=== PATIENT | male | born 1970 | race Caucasian/White ===

== ENCOUNTER 2021-11-25 16:46 | Inpatient (IN) | payer BC ==
[2021-11-25] MEDS ORDERED: CLOPIDOGREL 75 MG TAB ONE (17:00)
[2021-11-25] MEDS ORDERED: SODIUM CHLORIDE 0.9% 1,000 ML IV STA (17:15)
[2021-11-25] MEDS ORDERED: ASPIRIN 81 MG PO STA (17:15)
[2021-11-25] MEDS ORDERED: HEPARIN SODIUM 1,000 UN/ML (10ML VL) IV ONE ×2 (17:15→18:06)
[2021-11-25] MEDS ORDERED: NALOXONE 0.4 MG/ML 1 ML VIAL IV PRN (17:20)
--- NOTE | 2021-11-25 17:20 | ED ---
General Adult HPI - General Chief complaint: Chest Pain Stated complaint: chest pain Time Seen by Provider: 11/25/21 17:05 Source: patient, RN notes reviewed, old records reviewed Mode of arrival: ambulatory Limitations: no limitations - History of Present Illness Initial comments: Patient is a 50-year-old male with past medical history remarkable for chronic tobacco use who presents emergency Department multiple hours after the start of left-sided chest pain. Chest pain started between 2 PM and 3 PM. I evaluated the patient and he was placed in a room. She's describes the pain as an achy, sharp pain radiating from substernal to left side of his chest. States it is still somewhat there but is much improved from earlier. Does endorse some li ghtheadedness at this time. Endorses some shortness of breath earlier which is since improved as well. Denies any abdominal pain, nausea, vomiting. Denies any other acute complaints at this time. No medical history. Denies any medications or ALLERGIES. Not on blood thinners. Drove himself here. - Related Data Home Medications Medication Instructions Recorded Confirmed No Known Home Medications 11/25/21 11/25/21 Allergies Allergy/AdvReac Type Severity Reaction Status Date / Time No Known Allergies Allergy Verified 11/25/21 17:29 Review of Systems ROS Statement: Those systems with pertinent positive or pertinent negative responses have been documented in the HPI. Review of Systems: CONST: Denies fever EYES: Denies blurry vision ENT: Denies nasal congestion C/V: Endorses chest pain RESP: Denies shortness of breath GI: Denies abdominal pain : Denies dysuria SKIN: Denies rash. MSK: Denies joint pain. NEURO: Denies headache ROS Other: All systems not noted in ROS Statement are negative. Past Medical History Past Medical History: No Reported History History of Any Multi-Drug Resistant Organisms: None Reported Past Surgical History: Appendectomy, Orthopedic Surgery Past Psychological History: No Psychological Hx Reported Smoking Status: Current every day smoker Past Alcohol Use History: None Reported Past Drug Use History: None Reported General Exam - General Exam Comments Initial Comments: General: Appears in mild distress. HEAD: Normal with no signs of head trauma. EYES: PERRLA, EOMI, conjunctiva normal, no discharge. ENT: Hearing grossly intact, normal oropharynx. RESPIRATORY: Clear breath sounds bilaterally. No wheezes, rales, or rhonchi. C/V: Regular rate and rhythm. S1 and S2 auscultated, no edema, peripheral pulses 2+ and intact throughout ABD: Abd is soft, nontender, nondistended EXT: Normal range of motion, no obvious deformity SKIN: No rashes or lesions observed on exposed skin. NEURO: Alert and oriented 4. No focal deficits. Limitations: no limitations Course Vital Signs 11/25/21 16:59 Temperature 97.9 F Pulse Rate 102 H Respiratory 20 Rate Blood Pressure 98/64 O2 Sat by Pulse 100 Oximetry Medical Decision Making - Medical Decision Making Based on the patient's presentation and physical exam, there is concern for ACS. EKG was obtained at bedside, and showed acute STEMI, inferior wall. STEMI pager was activated. Cardiac labs were ordered. Patiently, 1 L fluid bolus as well as aspirin as well as a 4000 unit heparin bolus. I spoke with cardiology institutional cook, Dr. Burger who agreed the patient requires laboratory secretary. He evaluated the patient bedside. Dr. Burger was consulted. He requested the patient be administered Lipitor as well. Patient was reevaluated multiple times while he remained in the emergency department. EKG showed inferior wall STEMI. Laboratory studies were remarkable for mild leukocytosis of 11.4. Troponin is elevated to 0.082. Covid is negative. Remainder of the labs are unremarkable. I spoke with the admitting team under Dr. Cheney, city call. Patient was therefore admitted in serious condition. Disposition was to the [facility]. - Lab Data Result diagrams: 11/25/21 17:19 11/25/21 17:19 Lab Results 11/25/21 11/25/21 11/25/21 Range/Units 17:19 17:19 17:19 WBC 11.4 H (3.8-10.6) k/uL RBC 5.35 (4.30-5.90) m/uL Hgb 16.7 (13.0-17.5) gm/dL Hct 52.1 (39.0-53.0) % MCV 97.4 (80.0-100.0) fL MCH 31.2 (25.0-35.0) pg MCHC 32.0 (31.0-37.0) g/dL RDW 13.4 (11.5-15.5) % Plt Count 261 (150-450) k/uL MPV 7.9 Neutrophils % 75 % Lymphocytes % 19 % Monocytes % 4 % Eosinophils % 1 % Basophils % 0 % Neutrophils # 8.5 H (1.3-7.7) k/uL Lymphocytes # 2.2 (1.0-4.8) k/uL Monocytes # 0.4 (0-1.0) k/uL Eosinophils # 0.1 (0-0.7) k/uL Basophils # 0.0 (0-0.2) k/uL PT 10.5 (9.0-12.0) sec INR 1.0 (<1.2) APTT 25.1 (22.0-30.0) sec Sodium 135 L (137-145) mmol/L Potassium 3.8 (3.5-5.1) mmol/L Chloride 102 (98-107) mmol/L Carbon Dioxide 27 (22-30) mmol/L Anion Gap 6 mmol/L BUN 8 L (9-20) mg/dL Creatinine 0.80 (0.66-1.25) mg/dL Est GFR (CKD-EPI)AfAm >90 (>60 ml/min/1.73 sqM) Est GFR (CKD-EPI)NonAf >90 (>60 ml/min/1.73 sqM) Glucose 119 H (74-99) mg/dL Calcium 9.2 (8.4-10.2) mg/dL Total Bilirubin 0.7 (0.2-1.3) mg/dL AST 20 (17-59) U/L ALT 14 (4-49) U/L Alkaline Phosphatase 86 (38-126) U/L Troponin I (0.000-0.034) ng/mL Total Protein 6.7 (6.3-8.2) g/dL Albumin 4.1 (3.5-5.0) g/dL Coronavirus (PCR) (Not Detectd) 11/25/21 11/25/21 Range/Units 17:19 17:27 WBC (3.8-10.6) k/uL RBC (4.30-5.90) m/uL Hgb (13.0-17.5) gm/dL Hct (39.0-53.0) % MCV (80.0-100.0) fL MCH (25.0-35.0) pg MCHC (31.0-37.0) g/dL RDW (11.5-15.5) % Plt Count (150-450) k/uL MPV Neutrophils % % Lymphocytes % % Monocytes % % Eosinophils % % Basophils % % Neutrophils # (1.3-7.7) k/uL Lymphocytes # (1.0-4.8) k/uL Monocytes # (0-1.0) k/uL Eosinophils # (0-0.7) k/uL Basophils # (0-0.2) k/uL PT (9.0-12.0) sec INR (<1.2) APTT (22.0-30.0) sec Sodium (137-145) mmol/L Potassium (3.5-5.1) mmol/L Chloride (98-107) mmol/L Carbon Dioxide (22-30) mmol/L Anion Gap mmol/L BUN (9-20) mg/dL Creatinine (0.66-1.25) mg/dL Est GFR (CKD-EPI)AfAm (>60 ml/min/1.73 sqM) Est GFR (CKD-EPI)NonAf (>60 ml/min/1.73 sqM) Glucose (74-99) mg/dL Calcium (8.4-10.2) mg/dL Total Bilirubin (0.2-1.3) mg/dL AST (17-59) U/L ALT (4-49) U/L Alkaline Phosphatase (38-126) U/L Troponin I 0.082 H* (0.000-0.034) ng/mL Total Protein (6.3-8.2) g/dL Albumin (3.5-5.0) g/dL Coronavirus (PCR) Not Detected (Not Detectd) - EKG Data -: EKG Interpreted by Me EKG Comments: 12-lead Electrocardiogram Interpretation Note EKG was reviewed and interpreted by myself. 12-lead ECG performed at 1710 is interpreted by me as revealing normal sinus rhythm at a rate of 78 beats per minute. [place] is normal. [place] interval is 1 and 36 seconds, QRS duration is 80 ms, QTc is 426 no seconds.. There is concern for inferior wall ST segment elevation, with ST segment elevations in lead II, III, aVF as well as depressions in aVL and V2.. R wave progression across the precordium was delayed.. By my interpretation, this EKG is concerning for acute ST segment elevation inferior wall myocardial infarction.. Disposition Clinical Impression: ST elevation myocardial infarction (STEMI), Chest pain, Elevated troponin Disposition: ADMITTED IP TO THIS HOSP Condition: Serious Referrals: None,Stated [Primary Care Provider] - 1-2 days
[2021-11-25] MEDS ORDERED: ATORVASTATIN 80 MG TAB PO STA (17:27)
[2021-11-25 17:33] LABS: Basophils % (A) 0 %; Eosinophils # (A) 0.1 k/uL (0-0.7); Eosinophils % (A) 1 %; HCT 52.1 % (39.0-53.0); HGB 16.7 gm/dL (13.0-17.5); Lymphocytes # (A) 2.2 k/uL (1.0-4.8); Lymphocytes % (A) 19 %; MCH 31.2 pg (25.0-35.0); MCV 97.4 fL (80.0-100.0); Mean Platelet Volume 7.9; Monocytes # (A) 0.4 k/uL (0-1.0); Monocytes % (A) 4 %; Neutrophils # (A) 8.5 k/uL (1.3-7.7); Neutrophils % (A) 75 %; Platelet Count 261 k/uL (150-450); RBC 5.35 m/uL (4.30-5.90); RDW 13.4 % (11.5-15.5); WBC 11.4 k/uL (3.8-10.6)
[2021-11-25 17:37] LABS: ALT 14 U/L (4-49); AST 20 U/L (17-59); African American GFR (CKD) >90 (>60 ml/min/1.73 sqM); Albumin 4.1 g/dL (3.5-5.0); Alkaline Phosphatase 86 U/L (38-126); Anion Gap 6 mmol/L; Blood Urea Nitrogen 8 mg/dL (9-20); Calcium 9.2 mg/dL (8.4-10.2); Carbon Dioxide 27 mmol/L (22-30); Chloride 102 mmol/L (98-107); Glucose 119 mg/dL (74-99); Non-African American GFR(CKD) >90 (>60 ml/min/1.73 sqM); Potassium 3.8 mmol/L (3.5-5.1); Sodium 135 mmol/L (137-145); Total Bilirubin 0.7 mg/dL (0.2-1.3); Total Protein 6.7 g/dL (6.3-8.2)
--- NOTE | 2021-11-25 17:39 | P.CRDCN ---
History of Present Illness History of present illness: HISTORY OF PRESENTING ILLNESS This is a pleasant 50-year-old with past medical history significant for tobacco abuse who presents with chest pain that started approximately 2:30 today. He s tates it feels like a pressure achy feeling and would not go away and therefore drove himself to the emergency department he was found to have inferior STEMI. He denies any real lightheadedness or shortness breath. He denies any similar episodes in the past. He does smoke however no alcohol nor illicit drugs. EKG shows sinus rhythm with ST elevation inferiorly with reciprocal changes as well as ST depressions V1 through V2. REVIEW OF SYSTEMS At the time of my exam: CONSTITUTIONAL: Denies fever or chills. CARDIOVASCULAR: +chest pain, no shortness of breath, orthopnea, PND or palpitations. RESPIRATORY: Denies cough. GASTROINTESTINAL: Denies abdominal pain, diarrhea, constipation, nausea or vomiting. MUSCULOSKELETAL: Denies myalgias. NEUROLOGIC: Denies numbness, tingling or weakness. ENDOCRINE: Denies fatigue, weight change, polydipsia or polyurina. GENITOURINARY: Denies burning, hematuria or urgency with micturation. HEMATOLOGIC: Denies history of anemia or bleeding. PHYSICAL EXAMINATION Vital signs reviewed. CONSTITUTIONAL: +mild distress. HEENT: Head is normocephalic. Pupils are equal, round. Sclerae anicteric. Mucous membranes of the mouth are moist. No JVD. No carotid bruit. CHEST EXAMINATION: Lungs are clear to auscultation. No chest wall tenderness is noted on palpation or with deep breathing. HEART EXAMINATION: Regular rate and rhythm. S1, S2 heard. No murmurs, gallops or rub. ABDOMEN: Soft, nontender. Positive bowel sounds. EXTREMITIES: 2+ peripheral pulses, no lower extremity edema and no calf tenderness. NEUROLOGIC EXAMINATION: Patient is awake, alert and oriented x3. ASSESSMENT 1. Inferior STEMI 2. Tobacco abuse PLAN Discussed recommendations for heart catheterization with likely PCI and patient is agreeable. Aspirin, heparin, high intensity statin. Tobacco cessation. Check 2-D echo. Past Medical History Past Medical History: No Reported History History of Any Multi-Drug Resistant Organisms: None Reported Past Surgical History: Appendectomy, Orthopedic Surgery Past Psychological History: No Psychological Hx Reported Smoking Status: Current every day smoker Past Alcohol Use History: None Reported Past Drug Use History: None Reported Medications and Allergies Home Medications Medication Instructions Recorded Confirmed Type No Known Home Medications 11/25/21 11/25/21 History Allergies Allergy/AdvReac Type Severity Reaction Status Date / Time No Known Allergies Allergy Verified 11/25/21 17:29 Physical Exam Vitals: Vital Signs Temp Pulse Resp BP Pulse Ox 11/25/21 16:59 97.9 F 102 H 20 98/64 100 Intake and Output 11/25/21 11/25/21 11/25/21 06:59 14:59 22:59 Other: Weight 79.379 kg Results 11/25/21 17:19 CBC 11/25/21 Range/Units 17:19 WBC 11.4 H (3.8-10.6) k/uL RBC 5.35 (4.30-5.90) m/uL Hgb 16.7 (13.0-17.5) gm/dL Hct 52.1 (39.0-53.0) % Plt Count 261 (150-450) k/uL Current Medications Generic Name Dose Route Start Last Admin Trade Name Josephq PRN Reason Stop Dose Admin Sodium Chloride 1,000 mls @ 999 mls/hr 11/25/21 17:15 11/25/21 17:22 Saline 0.9% IV 11/25/21 18:15 999 mls/hr .Q1H1M STA Administration Intake and Output 11/25/21 11/25/21 11/25/21 06:59 14:59 22:59 Other: Weight 79.379 kg Patient Weight 11/26/21 06:59 Weight 79.379 kg 11/25/21 17:19
[2021-11-25] MEDS ORDERED: IV FLUID CONTINUATION 1,000 ML IV ONE ×2 (17:40)
[2021-11-25] MEDS ORDERED: HEPARIN SODIUM 1,000 UN/ML (10ML VL) ONE (17:41)
[2021-11-25] MEDS ORDERED: fentaNYL (PF) 50 MCG/ML 2 ML AMP ONE (17:41)
[2021-11-25 17:45] LABS: Partial Thromboplastin Time 25.1 sec (22.0-30.0); Prothrombin Time 10.5 sec (9.0-12.0)
--- NOTE | 2021-11-25 17:46 | P.HPIM ---
History of Present Illness H&P Date: 11/25/21 Chief Complaint: chest pain Patient is a 50-year-old male with past medical history of tobacco abuse who presents to the ED with pressure-like chest pain radiating across his chest. Patient states that it started at 2:30 PM while patient was doing his work on the computer. Patient stated that the chest pain was associated with lightheadedness. Patient was able to drive himself to the hospital. In the ED patient was found to have ST elevation in leads II, III and aVF with reciprocal changes in leads V1 and V2. STEMI alert was activated. Patient seen by [facility] and plan is to take him to the [facility]. Patient was given aspirin. Patient states that currently his chest pain is 0 out of 10. Review of Systems 10 ROS reviewed and are negative except as noted in HPI Past Medical History Past Medical History: No Reported History Additional Past Medical History / Comment(s): tobacco abuse History of Any Multi-Drug Resistant Organisms: None Reported Past Surgical History: Appendectomy, Orthopedic Surgery Past Psychological History: No Psychological Hx Reported Smoking Status: Current every day smoker Past Alcohol Use History: None Reported Past Drug Use History: None Reported Medications and Allergies Home Medications Medication Instructions Recorded Confirmed Type No Known Home Medications 11/25/21 11/25/21 History Allergies Allergy/AdvReac Type Severity Reaction Status Date / Time No Known Allergies Allergy Verified 11/25/21 17:29 Physical Exam Osteopathic Statement: *. No significant issues noted on an osteopathic struct ural exam other than those noted in the History and Physical/Consult. Vitals: Vital Signs Temp Pulse Resp BP Pulse Ox 11/25/21 16:59 97.9 F 102 H 20 98/64 100 Intake and Output 11/25/21 11/25/21 11/25/21 06:59 14:59 22:59 Other: Weight 79.379 kg General: [Alert and oriented, well nourished, no acute distress]. Eye: [PERRL, EOMI, normal conjunctiva]. HENT: [Normocephalic, clear tympanic membranes, normal hearing, moist oral mucosa, no scleral icterus, no sinus tenderness]. Neck: [Supple, non-tender, no carotid bruits, no JVD, no lymphadenopathy]. Lungs: [Clear to auscultation and percussion, non-labored respiration]. Heart: [Normal rate, regular rhythm, no murmur, gallop or edema]. Abdomen: [Soft, non-tender, non-distended, normal bowel sounds, no masses]. Musculoskeletal: [Normal range of motion and strength, no tenderness or swelling]. Skin: [Skin is warm, dry and pink, no rashes or lesions]. Neurologic: [Awake, alert, and oriented X3, CN II-XII intact]. Psychiatric: [Cooperative, appropriate mood and affect]. Results CBC & Chem 7: 11/25/21 17:19 11/25/21 17:19 Labs: Abnormal Lab Results - Last 24 Hours (Table) 11/25/21 11/25/21 Range/Units 17:19 17:19 WBC 11.4 H (3.8-10.6) k/uL Neutrophils # 8.5 H (1.3-7.7) k/uL Sodium 135 L (137-145) mmol/L BUN 8 L (9-20) mg/dL Glucose 119 H (74-99) mg/dL Assessment and Plan Assessment: #Inferior STEMI -STEMI has been activated. Patient will be taken to [facility] for emergent heart catheterization. -Aspirin heparin and high intensity started -Check lipid panel -Check 2-D echo -Troponin pending #Tobacco abuse -Patient will need counseling on smoking cessation prior to discharge CODE STATUS:full code DPOA: Patient would like his to make decisions for him if he lacks capacity DVT prophylaxis: Heparin drip Discussed with: Patient, ER, rn Anticipated length of stay > than [address]: home A total of 75 minutes was spent on the care of this complex patient more than 50% of the time was spent in counseling and care coordination.
[2021-11-25] MEDS ORDERED: LIDOCAINE 1% INJ 10MG/ML (20 ML MDV) SQ ONE (17:48)
[2021-11-25] MEDS ORDERED: MIDAZOLAM 2 MG/2 ML VIAL IV ONE (17:48)
[2021-11-25] MEDS ORDERED: fentaNYL (PF) 50 MCG/ML 2 ML AMP IV ONE (17:48)
--- NOTE | 2021-11-25 17:48 | XR ---
EXAMINATION TYPE: XR chest 1V portable DATE OF EXAM: 11/25/2021 5:29 PM COMPARISON:Multiple radiographs, with the most recent on 01/20/2014 TECHNIQUE: Frontal view of the chest. CLINICAL INDICATION:Male, 50 years old with history of chest pain; FINDINGS: Lungs/Pleura: There is no evidence of pleural effusion, focal consolidation, or pneumothorax. Pulmonary vascularity: Unremarkable. Heart/mediastinum: Cardiomediastinal silhouette is unremarkable. Musculoskeletal:No acute osseous pathology. IMPRESSION: No acute cardiopulmonary disease/process.
[2021-11-25] MEDS ORDERED: VERAPAMIL SYRINGE (5 MG/10 ML) INTRAARTER ONE (17:50)
[2021-11-25] MEDS ORDERED: PRASUGREL 10 MG TAB ONE (17:57)
[2021-11-25] MEDS ORDERED: PRASUGREL 10 MG TAB PO ONE (18:04)
[2021-11-25] MEDS ORDERED: IOPAMIDOL-370 125ML BTL INJ ONE (18:24)
[2021-11-25 18:51] LABS: Glucose,Whole Blood 105 mg/dL (75-99)
[2021-11-25] MEDS ORDERED: ZOLPIDEM 5 MG TAB PO PRN (19:16)
[2021-11-25] MEDS ORDERED: NITROGLYCERIN SL TABS 0.4 MG TAB SUBLINGUAL PRN (19:16)
[2021-11-25] MEDS ORDERED: MAG HYDROX/AL HYDROX/SIMETH 30 ML CUP PO PRN (19:16)
[2021-11-25] MEDS ORDERED: RX INFO: IV CONTRAST WAS GIVEN 1 EACH MISC MISCELLANE PRN (19:16)
[2021-11-25] MEDS ORDERED: ATROPINE SULFATE 0.1 MG/ML 10ML SYRINGE IV PRN (19:16)
[2021-11-25] MEDS: SODIUM CHLORIDE 0.9% 1,000 ML in EMPTY BAG 1 BAG IV SCH (20:48)
--- NOTE | 2021-11-25 22:02 | P.PRCINT ---
Percutaneous Coronary Int. - Percutaneous Coronary Intervention Percutaneous Coronary Intervention: PROCEDURES PERFORMED: Left heart catheterization, bilateral coronary angiography, aspiration thrombectomy RCA with Penumbra catheter, PCI RCA with 4.0 x 18mm Xience ADALBERTO, post dilated with a 4.5 NC balloon INDICATION: Inferior STEMI HISTORY: Patient is a pleasant 50 year old male with history of tobacco abuse who presented with chest pain over the last 2.5 hrs and was found to have inferior STEMI. He was given aspirin and heparin in ER with improvement in ST elevations by the time patient presented to [facility]. CONSENT:I have discussed the risks, benefits and alternative therapies for the above-mentioned procedure and for both sedation/analgesia as well as necessary blood product administration, if indicated, as they pertain to this patient. The patient has indicated understanding and acceptance of the risks and procedures discussed. PROCEDURE: After the risks, benefits and alternatives of the above mentioned procedure explained in detail with the patient, informed consent was obtained. Patient was taken to the catheterization lab and prepped and draped in usual fashion. 1% lidocaine was used to anesthetize the right radial artery. A 6- [place] sheath was placed in the right radial artery using modified Seldinger technique. Right coronary angiography was performed with a 6Fr AL 0.75 guide. Heparin was given for an ACT > 250. A 0.014 BMW wire was advanced into the distal RCA. Aspiration thrombectomy was performed with a Penumbra catheter given high thrombus burden. Next pre dilation was performed with a 3.0 x 12mm balloon. Next a 4.0 x 18mm Xience ADALBERTO was advanced and deployed in the mid RCA. The middle of the stent was post dilated with a 4.5NC balloon. The wire was pulled and final angiograms were performed. Pre intervention there was KEMI 2 flow and 99% stenosis and post intervention there was 0% stenosis and KEMI 3 flow. Left coronary angiography was performed with a 5-[place] JL 3.5 catheter. The JL 3.5 catheter was advanced into the LV and pressure measurements were obtained. The right radial sheath was removed and a TR band was placed with hemostasis achieved. The patient tolerated the procedure well. Patient was transported back to the post catheterization holding area in stable condition. Conscious Sedation: Patient was monitored under the direct supervision of vision of myself for conscious sedation using Versed and fentanyl for a total duration of 40 minutes HEMODYNAMICS: AO: 110/69 LV: 113/3, LVEDP 19mmHg SELECTIVE CORONARY ARTERIOGRAPHY: LEFT MAIN: The left main is a large caliber vessel which bifurcates into the LAD and circumflex. There is no stenosis. LEFT ANTERIOR DESCENDING CORONARY ARTERY: LAD is a large caliber vessel which wraps around to the apex. There is no stenosis of the LAD. There is a 30-40% proximal diagonal 1 branch stenosis. LEFT CIRCUMFLEX CORONARY ARTERY: Left circumflex is a moderate caliber vessel which has no significant stenosis. RIGHT CORONARY ARTERY: The right coronary artery is a large caliber vessel which gives off the PDA and PLV and is the dominant vessel. There is a hazy appearing mid RCA 99% stenosis and otherwise no significant stenosis. FINAL IMPRESSION: 1. CAD as described including 99% RCA stenosis and proximal diagonal 1 30-40% stenosis. 2. S/p successful PCI of mid RCA with 4.0 x 18mm Xience ADALBERTO post dilated with a 4.5NC balloon 3. Elevated left sided filling pressures PLAN: 1. Aggressive risk factor modification per most recent ACC/AHA guidelines. 2. Continue dual antiplatelets for 12 months. 3. Tobacco cessation.
[2021-11-26] MEDS: METOPROLOL SUCCINATE (ER) 25 MG TAB.ER.24H PO SCH (06:27)
[2021-11-26 07:36] LABS: HGB 14.8 gm/dL (13.0-17.5); MCH 32.4 pg (25.0-35.0); MCHC 32.9 g/dL (31.0-37.0); MCV 98.3 fL (80.0-100.0); Mean Platelet Volume 7.9; Platelet Count 228 k/uL (150-450); RBC 4.58 m/uL (4.30-5.90); RDW 13.1 % (11.5-15.5); WBC 7.5 k/uL (3.8-10.6)
[2021-11-26 07:40] LABS: African American GFR (CKD) >90 (>60 ml/min/1.73 sqM); Anion Gap 4 mmol/L; Blood Urea Nitrogen 8 mg/dL (9-20); Calcium 8.6 mg/dL (8.4-10.2); Carbon Dioxide 22 mmol/L (22-30); Chloride 112 mmol/L (98-107); Glucose 99 mg/dL (74-99); Non-African American GFR(CKD) >90 (>60 ml/min/1.73 sqM); Potassium 4.2 mmol/L (3.5-5.1); Sodium 138 mmol/L (137-145)
[2021-11-26] MEDS: ASPIRIN 81 MG PO SCH (08:45)
[2021-11-26] MEDS: PRASUGREL 10 MG TAB PO SCH (08:45)
--- NOTE | 2021-11-26 10:38 | P.PN ---
Subjective Progress Note Date: 11/26/21 Hospital course This is a pleasant 50-year-old male with past medical history significant for tobacco abuse who presented to the hospital on 11/25/21 with a chief complaint of chest pain. Patient reported pain was a pressure like achy sensation to midsternal chest that would not go away. Upon arrival to the emergency department patient was found to have an inferior STEMI. His EKG revealed sinus rhythm with ST elevation inferiorly with reciprocal changes as well as ST depressions in septal leads V1 through V2. His troponins were elevated at 0.082, 3.090, and 6.760. 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 Cardiac catheterization resulted in successful PCI of mid RCA, recommending aggressive risk factor modification and dual antiplatelet therapy for 12 months. Continue to strongly encourage tobacco cessation. 11/26/21: Patient seen and fully evaluated at the bedside this morning. Morning Labs and vital signs were unremarkable. Patient resting comfortably and denied having any complaints at this time including headache, lightheadedness, dizziness, chest pain, palpitations, shortness of breath, or experiencing any numbness/ti ngling/weakness in his extremities. Right wrist/cardiac cath insertion site showing no signs of bleeding, redness, or hematoma. PHYSICAL EXAMINATION Vital signs reviewed. CONSTITUTIONAL: Appears stated age, showing no signs of acute distress. HEENT: Head is normocephalic. Pupils are equal, round. Sclerae anicteric. Mucous membranes of the mouth are moist. No JVD. No carotid bruit. CHEST EXAMINATION: Lungs are clear to auscultation. No chest wall tenderness is noted on palpation or with deep breathing. HEART EXAMINATION: Regular rate and rhythm. S1, S2 heard. No murmurs, gallops or rub. ABDOMEN: Soft, nontender. Positive bowel sounds. EXTREMITIES: 2+ peripheral pulses, no lower extremity edema and no calf tenderness. NEUROLOGIC EXAMINATION: Patient is awake, alert and oriented x3. ASSESSMENT Inferior STEMI Tobacco abuse PLAN Patient underwent cardiac cath on 11/25/21 resulting in successful PCI of mid RCA. Continue dual antiplatelet therapy with aspirin and Effient. Continue atorvastatin and metoprolol. Echocardiogram revealed EF 50-55% with basal inferior left ventricular wall hypokinesis and mild to moderate mitral regurgitation. Continue to educate and encourage patient on the benefits of smoking cessation and the risks of continued use. Recommend monitoring patient overnight and likely discharge tomorrow morning. Thank you for allowing us to participate in the care of this pleasant patient. Do not hesitate to contact us with questions. Nurse practitioner note has been reviewed by physician. Signing provider agrees with the documented findings, assessment, and plan of care. Objective - Vital Signs Vital signs: Vital Signs Temp 98 F 11/26/21 08:00 Pulse 62 11/26/21 08:00 Resp 20 11/26/21 08:00 BP 102/67 11/26/21 08:00 Pulse Ox 96 11/26/21 08:00 Intake & Output 11/25/21 11/26/21 11/26/21 18:59 06:59 18:59 Intake Total 400 237 118 Balance 400 237 118 Weight 79.379 kg 77.4 kg Intake: IV 400 Oral 237 118 Other: Voiding Method Toilet # Voids 1 - Labs CBC & Chem 7: 11/26/21 07:12 11/26/21 07:12 Labs: Abnormal Lab Results - Last 24 Hours (Table) 11/25/21 11/25/21 11/25/21 Range/Units 17:19 17:19 17:19 WBC 11.4 H (3.8-10.6) k/uL Neutrophils # 8.5 H (1.3-7.7) k/uL Sodium 135 L (137-145) mmol/L Chloride (98-107) mmol/L BUN 8 L (9-20) mg/dL Glucose 119 H (74-99) mg/dL POC Glucose (mg/dL) (75-99) mg/dL Troponin I 0.082 H* (0.000-0.034) ng/mL 11/25/21 11/25/21 11/25/21 Range/Units 18:50 20:39 23:23 WBC (3.8-10.6) k/uL Neutrophils # (1.3-7.7) k/uL Sodium (137-145) mmol/L Chloride (98-107) mmol/L BUN (9-20) mg/dL Glucose (74-99) mg/dL POC Glucose (mg/dL) 105 H (75-99) mg/dL Troponin I 3.090 H* 6.760 H* (0.000-0.034) ng/mL 11/26/21 Range/Units 07:12 WBC (3.8-10.6) k/uL Neutrophils # (1.3-7.7) k/uL Sodium (137-145) mmol/L Chloride 112 H (98-107) mmol/L BUN 8 L (9-20) mg/dL Glucose (74-99) mg/dL POC Glucose (mg/dL) (75-99) mg/dL Troponin I (0.000-0.034) ng/mL
--- NOTE | 2021-11-26 11:37 | P.PN ---
Subjective Progress Note Date: 11/26/21 This morning patient denies any chest pain. He denies any acute complaints. No acute issues overnight. 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 Psych - Calm and cooperative - Labs CBC & Chem 7: 11/26/21 07:12 11/26/21 07:12 Labs: Abnormal Lab Results - Last 24 Hours (Table) 11/25/21 11/25/21 11/25/21 Range/Units 17:19 17:19 17:19 WBC 11.4 H (3.8-10.6) k/uL Neutrophils # 8.5 H (1.3-7.7) k/uL Sodium 135 L (137-145) mmol/L Chloride (98-107) mmol/L BUN 8 L (9-20) mg/dL Glucose 119 H (74-99) mg/dL POC Glucose (mg/dL) (75-99) mg/dL Troponin I 0.082 H* (0.000-0.034) ng/mL 11/25/21 11/25/21 11/25/21 Range/Units 18:50 20:39 23:23 WBC (3.8-10.6) k/uL Neutrophils # (1.3-7.7) k/uL Sodium (137-145) mmol/L Chloride (98-107) mmol/L BUN (9-20) mg/dL Glucose (74-99) mg/dL POC Glucose (mg/dL) 105 H (75-99) mg/dL Troponin I 3.090 H* 6.760 H* (0.000-0.034) ng/mL 11/26/21 Range/Units 07:12 WBC (3.8-10.6) k/uL Neutrophils # (1.3-7.7) k/uL Sodium (137-145) mmol/L Chloride 112 H (98-107) mmol/L BUN 8 L (9-20) mg/dL Glucose (74-99) mg/dL POC Glucose (mg/dL) (75-99) mg/dL Troponin I (0.000-0.034) ng/mL Assessment and Plan Assessment: #Inferior STEMI -Status post PCI to RCA -Patient started on aspirin and Effient beta lisa statin -Check 2-D echo #Tobacco abuse -Patient will need counseling on smoking cessation prior to discharge CODE STATUS:full code DPOA: Patient would like his to make decisions for him if he lacks capacity DVT prophylaxis: SC heparin Anticipated length of stay : Likely DC tomorrow cleared by cardiology Anticipated discharge place: home
[2021-11-26 12:35] VITALS: BMI 23.1
[2021-11-26 13:03] LABS: VLDL Calculation 16.52 mg/dL (5.00-40.00)
[2021-11-26] MEDS: SODIUM CHLORIDE 0.9% 1,000 ML in EMPTY BAG 1 BAG IV SCH (13:30)
--- NOTE | 2021-11-26 13:55 | ECHOF ---
Referral Reason:re: STEMI MEASUREMENTS -------- HEIGHT: 182.9 cm WEIGHT: 77.1 kg BP: 131/81 RVIDd: 3.2 cm (< 3.3) IVSd: 1.3 cm (0.6 - 1.1) LVIDd: 4.4 cm (3.9 - 5.3) LVPWd: 1.5 cm (0.6 - 1.1) IVSs: 1.8 cm LVIDs: 3.1 cm LVPWs: 1.9 cm LAESV Index (A-L): 22.38 ml/m Ao Diam: 3.2 cm (2.0 - 3.7) AV Cusp: 1.8 cm (1.5 - 2.6) LA Diam: 3.2 cm (2.7 - 3.8) MV EXCURSION: 13.261 mm (> 18.000) MV EF SLOPE: 122 mm/s (70 - 150) EPSS: 0.3 cm MV E Deejay: 0.88 m/s MV DecT: 298 ms MV A Deejay: 0.58 m/s MV E/A Ratio: 1.51 FINDINGS -------- Sinus rhythm. This was a technically adequate study. The left ventricular size is normal. There is mild concentric left ventricular hypertrophy. Overa ll left ventricular systolic function is low-normal with, an EF between 50 - 55 %. Basal inferior L V wall motion is hypokinetic. The right ventricle is normal in size. Normal LA size by volume 22+/-6 ml/m2. The right atrial size is normal. Interatrial and interventricular septum intact. There is no evidence of aortic regurgitation. There is no evidence of aortic stenosis. Rxar-yn-szyahlos mitral regurgitation is present. Mild tricuspid regurgitation present. There is no evidence of pulmonary hypertension. The right v entricular systolic pressure, as measured by Doppler, is {RVSP}. There is no pulmonic regurgitation present. The aortic root size is normal. IVC Not well visulized. There is no pericardial effusion. CONCLUSIONS -------- 1. The left ventricular size is normal. 2. There is mild concentric left ventricular hypertrophy. 3. Overall left ventricular systolic function is low-normal with, an EF between 50 - 55 %. 4. Basal inferior LV wall motion is hypokinetic. 5. Rtwp-va-txhgwkjw mitral regurgitation is present. 6. Mild tricuspid regurgitation present. DESKTOP ANALYST: Susan Martin RDCS
[2021-11-26] MEDS: HEPARIN SODIUM,PORCINE/PF 5,000 UNIT/0.5 ML SYRINGE SQ SCH ×2 (17:01→21:50)
[2021-11-26] MEDS ORDERED: ATORVASTATIN 80 MG TAB PO SCH (21:00)
[2021-11-27] MEDS: SODIUM CHLORIDE 0.9% 1,000 ML in EMPTY BAG 1 BAG IV SCH ×2 (07:45→10:47)
[2021-11-27 07:49] VITALS: BP 102/67; PULSE 85; RESP 18; TEMP 98.2
[2021-11-27] MEDS: PRASUGREL 10 MG TAB PO SCH (07:49)
[2021-11-27] MEDS: ASPIRIN 81 MG PO SCH (07:49)
[2021-11-27] MEDS: METOPROLOL SUCCINATE (ER) 25 MG TAB.ER.24H PO SCH (07:49)
[2021-11-27] MEDS: HEPARIN SODIUM,PORCINE/PF 5,000 UNIT/0.5 ML SYRINGE SQ SCH (07:49)
--- NOTE | 2021-11-27 11:31 | P.DS ---
Providers Date of admission: 11/25/21 17:22 Expected date of discharge: 11/27/21 Attending physician: Lynn Cheney MD Consults: 11/25/21 17:15 Consult Physician Stat Consulting Provider: Daniel Burger Consult Reason/Comments: STEMI ACTIVATION COMPLETE Do you want consulting provider notified?: Yes 11/25/21 19:16 Consult Physician Routine Consulting Provider: [facility] Consult Reason/Comments: Post Interventional patient Do you want consulting provider notified?: Already Contacted Primary care physician: Stated None Hospital Course: Discharge Diagnosis: STEMI Tobacco abuse Hospital Course: Patient is a 51-year-old male who presented to the ED with chest pain. Was found to have a STEMI. Patient was emergently taken for heart catheterization. He had PCI done to RCA. Patient's echocardiogram showed normal LV with some apical hypokinesis. Patient was started on aspirin metoprolol atorvastatin and Effient. Patient was cleared for discharge by cardiology. He was counseled on smoking cessation. I also had a lengthy conversation with the patient discussing medication compliance. I especially stressed to the patient that he has to take aspirin and Effient every day otherwise he is at risk for having stent thrombosis. I also make sure that I send the medications to pharmacy that was open on Sunday so that patient could get his medications. 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 Patient Condition at Discharge: Serious Plan - Discharge Summary Discharge Rx Participant: No New Discharge Prescriptions: New Prasugrel [Effient] 10 mg PO DAILY #30 tab Atorvastatin [Lipitor] 80 mg PO HS 30 Days tab Metoprolol Succinate (ER) [Toprol XL] 25 mg PO DAILY #30 Aspirin 81 mg PO DAILY #30 Discharge Medication List Aspirin 81 mg PO DAILY #30 11/27/21 [Rx] Atorvastatin [Lipitor] 80 mg PO HS 30 Days tab 11/27/21 [Rx] Metoprolol Succinate (ER) [Toprol XL] 25 mg PO DAILY #30 11/27/21 [Rx] Prasugrel [Effient] 10 mg PO DAILY #30 tab 11/27/21 [Rx] Follow up Appointment(s)/Referral(s): None,Stated [Primary Care Provider] - 1-2 days Discharge Disposition: HOME SELF-CARE
--- NOTE | 2021-11-27 13:46 | P.PN ---
Subjective Progress Note Date: 11/27/21 Hospital course This is a pleasant 50-year-old male with past medical history significant for tobacco abuse who presented to the hospital on 11/25/21 with a chief complaint of chest pain. Patient reported pain was a pressure like achy sensation to midsternal chest that would not go away. Upon arrival to the emergency department patient was found to have an inferior STEMI. His EKG revealed sinus rhythm with ST elevation inferiorly with reciprocal changes as well as ST depressions in septal leads V1 through V2. His troponins were elevated at 0.082, 3.090, and 6.760. 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 Cardiac catheterization resulted in successful PCI of mid RCA, recommending aggressive risk factor modification and dual antiplatelet therapy for 12 months. Continue to strongly encourage tobacco cessation. 11/27/21: Patient seen and fully evaluated at the bedside this morning. Morning Labs and vital signs were unremarkable. Patient resting comfortably and denied having any complaints at this time including headache, lightheadedness, dizziness, chest pain, palpitations, shortness of breath, or experiencing any numbness/ti ngling/weakness in his extremities. Right wrist/cardiac cath insertion site showing no signs of bleeding, redness, or hematoma. PHYSICAL EXAMINATION Vital signs reviewed. CONSTITUTIONAL: Appears stated age, showing no signs of acute distress. HEENT: Head is normocephalic. Pupils are equal, round. Sclerae anicteric. Mucous membranes of the mouth are moist. No JVD. No carotid bruit. CHEST EXAMINATION: Lungs are clear to auscultation. No chest wall tenderness is noted on palpation or with deep breathing. HEART EXAMINATION: Regular rate and rhythm. S1, S2 heard. No murmurs, gallops or rub. ABDOMEN: Soft, nontender. Positive bowel sounds. EXTREMITIES: 2+ peripheral pulses, no lower extremity edema and no calf tenderness. NEUROLOGIC EXAMINATION: Patient is awake, alert and oriented x3. ASSESSMENT Inferior STEMI Tobacco abuse PLAN Patient underwent cardiac cath on 11/25/21 resulting in successful PCI of mid RCA. Continue dual antiplatelet therapy with aspirin and Effient. Continue atorvastatin and metoprolol. Echocardiogram revealed EF 50-55% with basal inferior left ventricular wall hypokinesis and mild to moderate mitral regurgitation. Continue to educate and encourage patient on the benefits of smoking cessation and the risks of continued use. Patient cleared from cardiac perspective for discharge home, recommend following up outpatient with Dr. Burger as discussed. Thank you for allowing us to participate in the care of this pleasant patient. Do not hesitate to contact us with questions. Nurse practitioner note has been reviewed by physician. Signing provider agrees with the documented findings, a ssessment, and plan of care. Objective - Vital Signs Vital signs: Vital Signs Temp 98.2 F 11/27/21 07:48 Pulse 85 11/27/21 07:48 Resp 18 11/27/21 07:48 BP 102/67 11/27/21 07:48 Pulse Ox 96 11/27/21 07:48 Intake & Output 11/26/21 11/27/21 11/27/21 18:59 06:59 18:59 Intake Total 368 Balance 368 Weight 77.4 kg Intake: Intake, IV Titration 250 Amount Sodium Chloride 0.9% 1, 250 000 ml In Empty Bag 1 bag @ 1 ML/KG/HR 79.379 mls/ hr IV .[id number] [facility] Rx#: [id number] Oral 118 Other: Voiding Method Toilet # Voids 1 - Labs CBC & Chem 7: 11/26/21 07:12 11/26/21 07:12 Labs: Abnormal Lab Results - Last 24 Hours (Table) 11/26/21 Range/Units 07:12 HDL Cholesterol 32.50 L (40.00-60.00) mg/dL
== END 2021-11-27 12:58 | disposition home or self-care (01) | DRG 247 ==
LOC: EC 16:46 → 2SICU 17:22 → 3SCARD 11-26 03:53
PROVIDERS: ADMIT Internal Medicine; ATTEND Internal Medicine
PROC: B2111ZZ Fluoroscopy of Multiple Coronary Arteries using Low Osmolar Contrast (ICD-10-PCS; principal; 2021-11-25 17:37)
PROC: 02C03ZZ Extirpation of Matter from Coronary Artery, One Artery, Percutaneous Approach (ICD-10-PCS; principal; 2021-11-25 17:37)
PROC: 027034Z Dilation of Coronary Artery, One Artery with Drug-eluting Intraluminal Device, Percutaneous Approach (ICD-10-PCS; principal; 2021-11-25 17:37)
PROC: 4A023N7 Measurement of Cardiac Sampling and Pressure, Left Heart, Percutaneous Approach (ICD-10-PCS; principal; 2021-11-25 17:37)
DX: I21.19 ST elevation (STEMI) myocardial infarction involving other coronary artery of inferior wall (principal); D72.829 Elevated white blood cell count, unspecified; Z71.6 Tobacco abuse counseling; F17.210 Nicotine dependence, cigarettes, uncomplicated; I25.10 Atherosclerotic heart disease of native coronary artery without angina pectoris; K21.9 Gastro-esophageal reflux disease without esophagitis; Z20.822 Contact with and (suspected) exposure to COVID-19
CPT/HCPCS: 36415; 71045; 80048; 80053; 80061; 84484; 85025; 85027; 85610; 85730; 87635; 92973; 93005; 93306; 93458; 99285

== ENCOUNTER → 2022-03-13 | Outpatient (CLI) | payer BC ==
[2022-03-13 15:47] LABS: LDL Cholesterol,Calculated 60.6 mg/dL (0.0-131.0); VLDL Calculation 19.34 mg/dL (5.00-40.00)
[2022-03-13 16:09] LABS: ALT 40 U/L (10-49); AST 44 U/L (14-35)
== END | disposition home or self-care (01) ==
LOC: LABWHC1 09:34
PROVIDERS: ATTEND Internal Medicine
DX: E78.2 Mixed hyperlipidemia (principal)
CPT/HCPCS: 36415; 80061; 84450; 84460

== ENCOUNTER → 2022-11-18 | Outpatient (CLI) | payer BC ==
[2022-11-18 16:30] LABS: ALT 16 U/L (10-49); AST 16 U/L (14-35); Chol/HDL Ratio 5.07 Ratio; LDL Cholesterol,Calculated 138.4 mg/dL (0.0-131.0)
== END | disposition home or self-care (01) ==
LOC: LABWHC1 11:17
PROVIDERS: ATTEND Internal Medicine
DX: E78.2 Mixed hyperlipidemia (principal)
CPT/HCPCS: 36415; 80061; 84450; 84460

== ENCOUNTER → 2023-02-27 | Outpatient (CLI) | payer BC ==
[2023-02-27 15:30] LABS: ALT 31 U/L (10-49); AST 22 U/L (14-35)
== END | disposition home or self-care (01) ==
LOC: LABWHC1 07:39
PROVIDERS: ATTEND Internal Medicine
DX: E78.2 Mixed hyperlipidemia (principal)
CPT/HCPCS: 36415; 80061; 84450; 84460

== ENCOUNTER → 2024-03-08 | Outpatient (CLI) | payer BC ==
[2024-03-08 22:39] LABS: HCT 49.6 % (39.6-50.0); HGB 15.9 g/dL (13.0-17.0); MCH 31.3 pg (27.0-32.0); MCHC 32.1 g/dL (32.0-37.0); MCV 97.6 FL (80.0-97.0); Mean Platelet Volume 10.8 FL (9.5-12.2); NRBC Per 100 WBC 0 X 10*3/uL (0.00-0.01); Platelet Count 288 X 10*3/uL (140-440); RBC 5.08 X 10*6/uL (4.40-5.60); RDW 12.8 % (11.5-14.5); WBC 8.72 X 10*3/uL (4.50-10.00)
[2024-03-08 22:55] LABS: ALT 20 U/L (10-49); AST 17 U/L (14-35); BUN/Creat Ratio 9.78 Ratio (12.00-20.00); Blood Urea Nitrogen 8.8 mg/dL (9.0-27.0); Calcium 9.2 mg/dL (8.7-10.3); Carbon Dioxide 28.8 mmol/L (21.6-31.8); Chloride 98 mmol/L (96-109); Chol/HDL Ratio 3.27 Ratio; Glucose 131 mg/dL (70-110); LDL Cholesterol,Calculated 52.2 mg/dL (0.0-131.0); Potassium 5.3 mmol/L (3.5-5.5); Sodium 142 mmol/L (135-145); VLDL Calculation 11.72 mg/dL (5.00-40.00)
== END | disposition home or self-care (01) ==
LOC: LABWHC1 11:06
PROVIDERS: ATTEND Internal Medicine
DX: I25.10 Atherosclerotic heart disease of native coronary artery without angina pectoris (principal); E78.2 Mixed hyperlipidemia
CPT/HCPCS: 36415; 80048; 80061; 83036; 84450; 84460; 85027